=== PATIENT | male | born 1995 | race Caucasian/White ===

== ENCOUNTER 2019-04-28 10:12 | Emergency (ER) | payer OTHER ==
[~2019-04-28] VITALS: Ht 188 cm; Wt 63.8 kg
[2019-04-28 10:19] VITALS: BP 120/57
[2019-04-28 11:56] VITALS: PULSE 89; TEMP 97.3
== END 2019-04-28 11:56 | disposition home or self-care (01) ==
LOC: COL.ER 10:12
DX: J10.1 Influenza due to other identified influenza virus with other respiratory manifestations (principal)

== ENCOUNTER 2023-02-04 15:34 | Emergency (ER) | payer OTHER ==
[~2023-02-04] VITALS: Ht 188 cm; Wt 72.7 kg
[2023-02-04 15:52] VITALS: TEMP 98.1
[2023-02-04] MEDS ORDERED: DOXYCYCLINE 10100 MG PO (17:19)
[2023-02-04 17:30] VITALS: BP 114/71; PULSE 82
== END 2023-02-04 17:30 | disposition home or self-care (01) ==
LOC: COL.ER 15:34
DX: R10.32 Left lower quadrant pain (principal); N50.89 Other specified disorders of the male genital organs; I86.1 Scrotal varices; Z87.891 Personal history of nicotine dependence